=== PATIENT | male | born 1950 | race Caucasian/White ===

== ENCOUNTER → 2017-07-24 13:22 | Outpatient (CLI) | payer OTHER ==
[2014-08-05 06:18] VITALS: BMI 20.9
[~2017-07-24 13:22] MED LIST: ASPIRIN EC81 M1 PO; LIPITOR40 MG PO; SYNTHROID50 MCG PO
[2017-07-29 20:09] LABS: IMMUNOGLOBULIN E 15 IU/mL (0-100)
== END | disposition home or self-care (01) ==
LOC: D.LAB 13:00 → D.RT 14:00
PROVIDERS: Internal Medicine Pulmonary Disease
DX: J43.9 Emphysema, unspecified (principal); J30.9 Allergic rhinitis, unspecified

== ENCOUNTER → 2018-04-22 10:34 | Outpatient (CLI) | payer OTHER ==
[2014-08-05 06:18] VITALS: BMI 20.9
== END | disposition home or self-care (01) ==
LOC: D.CT 10:34
DX: R91.8 Other nonspecific abnormal finding of lung field (principal)

== ENCOUNTER → 2018-04-24 09:32 | Outpatient (CLI) | payer OTHER ==
[2014-08-05 06:18] VITALS: BMI 20.9
== END | disposition home or self-care (01) ==
LOC: D.MRI 09:00
DX: N28.89 Other specified disorders of kidney and ureter (principal); R51 Headache